=== PATIENT | male | born 1965 | race Caucasian/White ===

== ENCOUNTER → 2021-06-03 | Outpatient (CLI) | payer OTHER ==
[~2021-06-03] MED LIST: HYDROCODONE BIT1 T11 PO; NAPROSYN500 MG PO
== END | disposition home or self-care (01) ==
LOC: COVID19 15:07
PROVIDERS: ATTEND Internal Medicine
DX: Z11.52 Encounter for screening for COVID-19 (principal)

== ENCOUNTER 2021-09-08 | Emergency (ER) | payer SELFPAY ==
[~2021-09-08] VITALS: Ht 180.3 cm; Wt 73.9 kg
== END 2021-09-08 01:10 | disposition home or self-care (01) ==
LOC: ED
DX: T15.02XA Foreign body in cornea, left eye, initial encounter (principal); X58.XXXA Exposure to other specified factors, initial encounter; Y93.89 Activity, other specified; Y92.89 Other specified places as the place of occurrence of the external cause; Y99.8 Other external cause status

== ENCOUNTER 2022-09-22 12:38 | Emergency (ER) | payer SELFPAY ==
[~2022-09-22] VITALS: Ht 172.7 cm; Wt 64.9 kg
[2022-09-22 13:20] LABS: BASO # 0.1 10*3/uL (0.0-0.1); BASO % 0.9 % (0.0-1.0); EOS # 0.4 10*3/uL (0.0-0.4); HEMATOCRIT 45.1 % (42.0-52.0); LYMPH # 1.6 10*3/uL (1.3-4.4); LYMPH % 25.6 % (27.0-41.0); MEAN CELL VOLUME 95.8 fl (80.0-94.0); MEAN CORPUSCULAR HGB 32.5 pg (27.0-31.0); MEAN CORPUSCULAR HGB CONC 33.9 g/dl (33.0-37.0); MEAN PLATELET VOLUME 9.8 fl (9.6-12.3); MONO # 0.4 10*3/uL (0.1-1.0); MONO % 5.8 % (3.0-9.0); NEUT # 3.9 10*3/uL (2.3-7.9); NEUT % 61.5 % (47.0-73.0); PLATELET COUNT AUTOMATED 232 10*3/uL (130-400); RED BLOOD COUNT 4.71 10*6/uL (4.50-5.90); WHITE BLOOD COUNT 6.3 10*3/uL (4.8-10.8)
[2022-09-22 13:30] LABS: ACT PARTIAL THROMBO TIME 26.5 SECONDS (20.0-32.1); INTERNATIONAL NORM RATIO 0.9 (2.0-3.5)
[2022-09-22 13:35] LABS: ALKALINE PHOSPHATASE 87 U/L (46-116); BUN 8 mg/dl (9-23); CHLORIDE 104 mmol/L (98-107); LIPASE 41 U/L (12-53); POTASSIUM 3.9 mmol/L (3.4-5.1); SGPT/ALT 15 U/L (10-49)
[2022-09-22] MEDS ORDERED: ZITHROMAX250 MG PO (15:08)
[2022-09-22] MEDS ORDERED: PREDNISONE50 MG PO (15:08)
== END 2022-09-22 15:15 | disposition home or self-care (01) ==
LOC: ED 12:38
PROVIDERS: Emergency Medicine
DX: J20.9 Acute bronchitis, unspecified (principal); J44.0 Chronic obstructive pulmonary disease with (acute) lower respiratory infection

== ENCOUNTER 2023-06-22 18:14 | Emergency (ER) | payer OTHER ==
[~2023-06-22] VITALS: Ht 182.8 cm; Wt 70.8 kg
[~2023-06-22 18:14] MED LIST changes: +PREDNISONE50 MG PO; +ZITHROMAX250 MG PO
[2023-06-22] MEDS ORDERED: MELOXICAM15 MG PO (21:45)
== END 2023-06-22 22:25 | disposition home or self-care (01) ==
LOC: ED 18:14
DX: S52.501A Unspecified fracture of the lower end of right radius, initial encounter for closed fracture (principal); J44.9 Chronic obstructive pulmonary disease, unspecified; F17.290 Nicotine dependence, other tobacco product, uncomplicated; W10.9XXA Fall (on) (from) unspecified stairs and steps, initial encounter; Y93.89 Activity, other specified; Y92.89 Other specified places as the place of occurrence of the external cause; Y99.8 Other external cause status

== ENCOUNTER → 2023-06-29 | Day surgery (SDC) | payer OTHER ==
[2023-06-25 12:45] VITALS: BP 91/72
[2023-06-25 14:24] LABS: BUN 14 mg/dl (9-23); CHLORIDE 108 mmol/L (98-107); POTASSIUM 4.1 mmol/L (3.4-5.1)
[~2023-06-29] VITALS: Ht 182.8 cm; Wt 69.4 kg
[~2023-06-29] MED LIST changes: +HYDROCODONE-AC1 EAC1 PO; +MELOXICAM15 MG PO
[2023-06-29 10:30] VITALS: BP 119/73
[2023-06-29 14:02] VITALS: BP 134/88
[2023-06-29 14:17] VITALS: BP 115/77
[2023-06-29 14:32] VITALS: BP 115/63
[2023-06-29 14:47] VITALS: BP 127/82
[2023-06-29 15:01] VITALS: BP 133/70
== END | disposition home or self-care (01) ==
LOC: SDC 06-25 11:45
PROVIDERS: ATTEND Orthopaedic Surgery
DX: S52.571A Other intraarticular fracture of lower end of right radius, initial encounter for closed fracture (principal); J44.9 Chronic obstructive pulmonary disease, unspecified; F43.10 Post-traumatic stress disorder, unspecified; F17.210 Nicotine dependence, cigarettes, uncomplicated; Z79.899 Other long term (current) drug therapy; Z98.890 Other specified postprocedural states; W00.0XXA Fall on same level due to ice and snow, initial encounter; Y93.89 Activity, other specified; Y92.89 Other specified places as the place of occurrence of the external cause; Y99.8 Other external cause status

== ENCOUNTER → 2023-07-14 | Outpatient (CLI) | payer OTHER | END | disposition home or self-care (01) | LOC: ORTHO 03:59 | PROVIDERS: ATTEND Orthopaedic Surgery | DX: S52.571D Other intraarticular fracture of lower end of right radius, subsequent encounter for closed fracture with routine healing (principal); M79.89 Other specified soft tissue disorders; X58.XXXD Exposure to other specified factors, subsequent encounter ==

== ENCOUNTER → 2023-08-11 | Outpatient (CLI) | payer OTHER | END | disposition home or self-care (01) | LOC: ORTHO 01:17 | PROVIDERS: ATTEND Orthopaedic Surgery | DX: S52.571D Other intraarticular fracture of lower end of right radius, subsequent encounter for closed fracture with routine healing (principal); S62.111D Displaced fracture of triquetrum [cuneiform] bone, right wrist, subsequent encounter for fracture with routine healing; X58.XXXD Exposure to other specified factors, subsequent encounter ==

== ENCOUNTER → 2023-09-22 | Outpatient (CLI) | payer OTHER | END | disposition home or self-care (01) | LOC: ORTHO 03:40 | PROVIDERS: ATTEND Orthopaedic Surgery | DX: S52.571D Other intraarticular fracture of lower end of right radius, subsequent encounter for closed fracture with routine healing (principal); S52.611A Displaced fracture of right ulna styloid process, initial encounter for closed fracture; M79.89 Other specified soft tissue disorders; X58.XXXD Exposure to other specified factors, subsequent encounter; X58.XXXA Exposure to other specified factors, initial encounter; Y93.89 Activity, other specified; Y92.89 Other specified places as the place of occurrence of the external cause; Y99.8 Other external cause status ==

== ENCOUNTER → 2023-12-29 | Outpatient (CLI) | payer OTHER | LOC: ORTHO 02:19 | PROVIDERS: ATTEND Orthopaedic Surgery | DX: S52.571D Other intraarticular fracture of lower end of right radius, subsequent encounter for closed fracture with routine healing (principal); X58.XXXD Exposure to other specified factors, subsequent encounter ==